=== PATIENT | male | born 1985 | race Caucasian/White ===

== ENCOUNTER 2018-10-21 11:07 | Emergency (ER) | payer OTHER ==
[~2018-10-21] VITALS: Ht 177.8 cm; Wt 95.3 kg
== END 2018-10-21 18:42 | disposition home or self-care (01) ==
LOC: ER 11:07
DX: K52.9 Noninfective gastroenteritis and colitis, unspecified (principal)

== ENCOUNTER 2019-08-14 11:58 | Emergency (ER) | payer OTHER ==
[~2019-08-14] VITALS: Ht 177.8 cm; Wt 99.8 kg
== END 2019-08-14 16:08 | disposition home or self-care (01) ==
LOC: ER 11:58
DX: S50.812A Abrasion of left forearm, initial encounter (principal); S00.81XA Abrasion of other part of head, initial encounter; M12.531 Traumatic arthropathy, right wrist; V49.88XA Car occupant (driver) (passenger) injured in other specified transport accidents, initial encounter; Y93.89 Activity, other specified; Y92.488 Other paved roadways as the place of occurrence of the external cause; Y99.8 Other external cause status